=== PATIENT | female | born 1990 | race African-American/Black ===

== ENCOUNTER 2020-07-22 16:05 | Inpatient (IN) ==
[2020-07-22] MEDS ORDERED: NS 1,000 ML IV 1,000 ML ONE ×2 (19:58→21:07)
[2020-07-22] MEDS ORDERED: FLAGYL IV PREMIX 500 MG BAG 500 MG/100 ML BAG IV ONE (19:59)
[2020-07-22] MEDS ORDERED: SOLU-Medrol 40 MG VIAL ONE (19:59)
[2020-07-22 20:22] LABS: BASOPHILS # (AUTO) 0.1 X10^3/uL (0.0-0.1); MEAN CORPUSCULAR HEMOGLOBIN 12.3 pg (27.0-34.0)
[2020-07-22 20:28] LABS: ALANINE AMINOTRANSFERASE 13 Units/L (12-78); ALBUMIN 2.9 g/dL (3.4-5.0); ALKALINE PHOSPHATASE 88 Units/L (46-116); ASPARTATE AMINO TRANSFERASE 18 Units/L (15-37); BLOOD UREA NITROGEN 9 mg/dL (7-18); CALCIUM 8.6 mg/dL (8.5-10.1); CARBON DIOXIDE 28.9 mmol/L (21-32); CHLORIDE 105 mmol/L (98-107); COR CA(FOR HYPOALB) 9.5 mg/dL (8.5-10.1); CREATININE 0.71 mg/dL (0.55-1.02); SODIUM 141 mmol/L (136-145); TOTAL PROTEIN 8.8 g/dL (6.4-8.2); eGFR NON BLACK RACES > 60 (>60)
--- NOTE | 2020-07-22 20:28 | RAD ---
CHEST, PA/LAT ADULTHISTORY: ABDOMINAL PAINStudy: PA and lateral views of the chest.Comparison:NoneFindings:Poor inspiratory effort results in crowding of lung markings. Possible cardiomegaly.No focal consolidations, pleural effusions or pneumothorax. Osseous structures demonstrate no acute abnormality.IMPRESSION:1. Examination limited by poor inspiratory effort and excessively large field of view. Within those limitations, no definite acute cardiopulmonary abnormality.Electronically signed by: AMRIK AMBROCIO (Jul 22, 2020 20:26:47)
[2020-07-22 20:47] LABS: BASOPHILS % (AUTO) 0.9 % (0.2-1.0); EOSINOPHILS # (AUTO) 0.4 x10^3/uL (0.0-0.2); EOSINOPHILS % (AUTO) 3.3 % (0.9-2.9); HEMATOCRIT 20.8 % (36.0-47.0); LYMPHOCYTES # (AUTO) 3.8 X10^3/uL (1.3-2.9); LYMPHOCYTES % (AUTO) 32.5 % (21.0-51.0); MEAN CORPUSCULAR HGB CONC 25.3 g/dL (33.0-35.0); MEAN CORPUSCULAR VOLUME 48.6 fL (80.0-100.0); MEAN PLATELET VOLUME 8.8 fL (7.4-11.0); MONOCYTES # (AUTO) 0.5 x10^3/uL (0.3-0.8); MONOCYTES % (AUTO) 4.6 % (0.0-13.0); NEUTROPHILS # (AUTO) 6.8 x10^3/uL (2.2-4.8); NEUTROPHILS % (AUTO) 58.7 % (42.0-75.0); PLATELET COUNT 524 X10^3/uL (150.0-450.0); RED BLOOD COUNT 4.27 X10^6/uL (3.5-5.4); RED CELL DISTRIBUTION WIDTH 23.3 % (11.6-16.5); WHITE BLOOD COUNT 11.6 X10^3/uL (3.6-10.0)
[2020-07-22] MEDS ORDERED: CIPRO IV 400 MG PREMIX* 400 MG/200 ML IV.SOLN. IV SCH (21:00)
[2020-07-22 21:13] LABS: HEMOGLOBIN 5.3 g/dL (12.0-16.0)
[2020-07-22 21:14] LABS: ANISOCYTOSIS 2+; ERYTHROCYTE SEDIMENTATION RATE 72 MM/HOUR (0-20); GIANT PLATELET FEW; HYPOCHROMASIA 3+; MICROCYTOSIS 3+; PLATELET MORPHOLOGY COMMENT ABNORMAL (NORMAL)
[2020-07-22] MEDS: FLAGYL IV PREMIX 500 MG BAG 500 MG/100 ML BAG IV SCH (21:20)
[2020-07-22] MEDS: NS 1,000 ML IV 1,000 ML IV SCH (21:20)
[2020-07-22] MEDS: SOLU-Medrol 40 MG VIAL IVP SCH (21:20)
[2020-07-22] MEDS ORDERED: MORPHINE SULFATE INJ 2 MG INJ IVP PRN (21:39)
[2020-07-22] MEDS ORDERED: TORADOL 30 MG VIAL IVP ONE (22:26)
[2020-07-22] MEDS ORDERED: NORCO 7.5/325 MG TAB PO PRN (22:26)
[2020-07-22] MEDS ORDERED: TORADOL 30 MG VIAL ONE (22:41)
[2020-07-22] MEDS ORDERED: NYSTATIN POWDER ONE (22:42)
[2020-07-22] MEDS ORDERED: CLEOCIN 600 MG IV PREMIX 600 MG/50 ML BAG IV ONE (22:42)
[2020-07-22] MEDS ORDERED: ZOSYN VIAL 4.5 GRAMS IV ONE (22:43)
[2020-07-22] MEDS ORDERED: NS 100 ML IV + SPIKE MINIBAG* 100 ML IV ONE (22:43)
[2020-07-22] MEDS ORDERED: CLEOCIN 300 MG IV PREMIX 300 MG/50 ML BAG IV ONE (22:43)
[2020-07-23] MEDS ORDERED: NS 250 ML IV 250 ML IV ONE ×3 (00:38→15:27)
[2020-07-23] MEDS: ZOSYN VIAL 4.5 GRAMS 4.5 G in NS 100 ML IV + SPIKE MINIBAG* 100 ML IV SCH ×4 (01:12→21:00)
[2020-07-23 01:41] LABS: BILIRUBIN,URINE NEGATIVE (NEGATIVE); BLOOD/HEMOGLOBIN,URINE 5+ (NEGATIVE); GLUCOSE, URINE NEGATIVE (NEGATIVE); KETONES,URINE NEGATIVE (NEGATIVE); LEUKOCYTE ESTERASE ,URINE 3+ (NEGATIVE); NITRITES,URINE NEGATIVE (NEGATIVE); PROTEIN,URINE 2+ (NEGATIVE); UROBILINOGEN,URINE NORMAL (NORMAL)
[2020-07-23 01:43] LABS: APPEARANCE,URINE HAZY (CLEAR); COLOR,URINE DARK YELLOW (YELLOW)
[2020-07-23] MEDS: DILAUDID INJ IVP PRN ×3 (01:45→21:00)
[2020-07-23 01:51] LABS: BACTERIA,URINE 1+ /HPF (NEGATIVE); SQUAMOUS EPITHELIAL CELL,UR FEW /HPF (NEGATIVE)
[2020-07-23] MEDS ORDERED: BENADRYL CAP/TAB 25 MG PO ONE (02:41)
[2020-07-23] MEDS ORDERED: BENADRYL INJ 50 MG VIAL ONE ×2 (03:08→20:57)
[2020-07-23] MEDS: FLAGYL IV PREMIX 500 MG BAG 500 MG/100 ML BAG IV SCH ×4 (03:27→21:00)
[2020-07-23] MEDS: SOLU-Medrol 40 MG VIAL IVP SCH ×2 (05:29→15:30)
--- NOTE | 2020-07-23 07:07 | CT ---
HISTORYCHRONSSTUDYABDOMEN/PELVIS WITH CONCOMPARISONNone.TECHNIQUEMultiple axial images of the abdomen and pelvis were obtained from the lung bases to the pubic symphysis after the administration of IV contrast. Dose reduction techniques including Automated Exposure Control (AEC) and adjustment of mA and kV were utilized.FINDINGSLung bases are clear. The heart is mildly enlarged. Liver, gallbladder, spleen, pancreas, adrenal glands have a benign appearance. There is contrast excretion into the collecting system bilaterally which limits evaluation for nephrolithiasis. No nephrolithiasis, suspicious mass or hydronephrosis identified in the kidneys. Urinary bladder appears normal. Uterus is present. Diverticulosis of the colon without evidence of diverticulitis. The appendix appears normal. No significant wall enhancement, thickening or surrounding fat stranding of the terminal ileum. Negative for bowel obstruction. Normal caliber not atherosclerotic abdominal aorta. No pathologic adenopathy. No free air, free fluid or collection. Fat stranding in the anterior pelvic wall. No acute osseous abnormality. T8 hemangioma measuring 1 cm on image 40 series 7.IMPRESSIONFat stranding in the anterior pelvis wall/mons pubis consistent with cellulitis.Cardiomegaly.Otherwise no acute findings.Limited evaluation for nephrolithiasis given contrast excretion.Electronically signed by: Jorden Heath (Jul 23, 2020 07:05:57)
[2020-07-23] MEDS ORDERED: INJECTAFER 750 MG in NS 250 ML IV 250 ML IV NR (08:00)
[2020-07-23] MEDS ORDERED: CLEOCIN VIAL 600 MG 900 MG in D5W 50 ML IV 50 ML IV SCH ×2 (08:00→09:00)
[2020-07-23] MEDS ORDERED: INFeD or DEXFERRUM 25 MG in NS 100 ML IV 100 ML IV NR (09:00)
[2020-07-23 09:48] LABS: HEMATOCRIT 29.8 % (36.0-47.0)
[2020-07-23 10:02] LABS: HEMOGLOBIN 8.6 g/dL (12.0-16.0)
[2020-07-23] MEDS ORDERED: INFeD or DEXFERRUM 975 MG in NS 500 ML IV 500 ML IV NR (10:30)
--- NOTE | 2020-07-23 10:45 | DR.H&P ---
H&P - History & Physical for Day of: H&P Date: 07/22/20 - Chief Complaint Chief Complaint: ACUTE CROHNS FLARE, ANEMIA, RECTAL PAIN - History of Present Illness History of Present Illness: PT IS 30BF, DIRECT ADMIT WITH CO CROHNS FLARE, BLOOD IN STOOL, RECTAL PAIN WITH HX OF RECTAL FISTULAS. PT WAS ANEMIC, REQUIRING TRANSFUSION. 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 PT DENIES ANY CCC, FEVER OR COVID 19 SYMPTOMS. 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 - Social History Does patient currently use any type of tobacco product: Yes Have you used tobacco products in the last 12 months: Yes Type of Tobacco Use: Cigarettes How many years tobacco product used: 2 Alcohol Use: None Drug Use: None - Medications Home Medications: No Known Drug Allergies Allergy (Verified 07/22/20 19:47) CONTINUE taking the following medications amitriptyline 100 mg PO QHS 07/23/20 [History] dicyclomine 20 mg PO QID PRN 07/23/20 [History] hydrocodone-acetaminophen 1 tab PO DAILY 07/23/20 [History] hydroxyzine pamoate 25 mg PO USEASDIRECTD PRN 07/23/20 [History] ibuprofen 400 mg PO Q6H PRN 07/23/20 [History] ketoconazole 1 applic TOPICAL DAILY 07/23/20 [History] ketoconazole 200 mg PO BID 07/23/20 [History] promethazine 25 mg PO Q6HR PRN 07/23/20 [History] silver sulfadiazine [Silvadene] 1 applic TOPICAL DAILY 07/23/20 [History] - Review of Systems Constitutional: Malaise Eyes: No Symptoms Reported ENT: No Symptoms Reported Respiratory: SOB with Excertion Cardiovascular: No Symptoms Reported Gastrointestinal: Nausea, Vomiting, Abdominal Pain, Diarrhea Genitourinary: No Symptoms Reported Musculoskeletal: No Symptoms Reported Skin: Wound Neurological: No Symptoms Reported - Physical Exam Vital Signs: Temperature 97.8 F Pulse Rate [Apical] 95 Respiratory Rate 18 Blood Pressure [Left Arm] 103/76 O2 Sat by Pulse Oximetry 99 Oriented: Normal Eyes: Normal Ear: Normal Nose: Normal Throat: Normal Respiratory: Clear Throughout Cardiovascular: Normal : Normal Auscultation: Bowel Sounds: Normal Palpation: Normal Tenderness: LUQ, LLQ, Mild Skin: Red (DIFFUSE REDNESS UNDER LEFT BREAST), Wound (PERIRECTAL OPEN FISSURES, DIFFUSE REDNESS) Musculoskeletal: Normal Psychiatric: Anxiety Affect: Anxious Speech Pattern: Clear, Appropriate - Assessment/Plan (1) Anemia Status: Acute Plan: ADMIT, TRANSFUSE 2U PRBC PER PROTOCOL. STOOL STUDIES, IV ATBX THERAPY, IV SOLUMEDROL. PAIN CONTROL, VERIFY AND RESUME HOME MEDICATION. IV HYDRATION, IRON REPLACEMENT (2) Crohn's disease Status: Acute (3) Rectal fistula Status: Acute (4) Anal fissure Status: Acute (5) Cellulitis Status: Acute - Allergies Allergies/Adverse Reactions: Allergies Allergy/AdvReac Type Severity Reaction Status Date / Time No Known Drug Allergies Allergy Verified 07/22/20 19:47
[2020-07-23] MEDS ORDERED: VISTARIL PO PRN (10:48)
[2020-07-23] MEDS ORDERED: PHENERGAN TAB 25 MG PO PRN (10:48)
[2020-07-23] MEDS: NYSTATIN POWDER TOP SCH ×2 (10:51→21:00)
[2020-07-23] MEDS: NS 1,000 ML IV 1,000 ML IV SCH (10:51)
[2020-07-23] MEDS ORDERED: AMITRIPTYLINE 100 MG PO SCH (11:00)
[2020-07-23 13:50] VITALS: BMI 32.3
[2020-07-23] MEDS ORDERED: CLEOCIN 600 MG IV PREMIX 600 MG/50 ML BAG IV SCH (14:00)
[2020-07-23] MEDS: BACTROBAN TOP SCH ×8 (14:58→22:00)
[2020-07-23] MEDS: XYLOCAINE TOP SCH ×8 (14:58→22:00)
[2020-07-23] MEDS: [UNRECOGNIZED DRUG - OTHER] TOP SCH ×8 (14:58→22:00)
[2020-07-23] MEDS: NYSTATIN TOP SCH ×8 (14:58→22:00)
[2020-07-23] MEDS: D5W IV SCH ×4 (15:30→22:00)
[2020-07-23] MEDS: CLEOCIN IV SCH ×4 (15:30→22:00)
[2020-07-23] MEDS ORDERED: SOLU-Medrol 125 MG VIAL IVP ONE (20:42)
[2020-07-23] MEDS ORDERED: BENADRYL INJ 50 MG VIAL IVP ONE (20:42)
[2020-07-23] MEDS ORDERED: SOLU-Medrol 40 MG VIAL ONE (20:58)
[2020-07-23] MEDS: ELAVIL PO SCH (21:00)
[2020-07-23] MEDS ORDERED: SOLU-Medrol 40 MG VIAL IVP SCH (21:00)
[2020-07-24] MEDS: NS 1,000 ML IV 1,000 ML IV SCH ×2 (01:12→13:51)
[2020-07-24] MEDS: FLAGYL IV PREMIX 500 MG BAG 500 MG/100 ML BAG IV SCH ×4 (04:26→21:00)
[2020-07-24 05:21] LABS: BASOPHILS % (AUTO) 0.1 % (0.2-1.0); EOSINOPHILS % (AUTO) 0.1 % (0.9-2.9); HEMATOCRIT 26.4 % (36.0-47.0); HEMOGLOBIN 7.4 g/dL (12.0-16.0); LYMPHOCYTES # (AUTO) 0.8 X10^3/uL (1.3-2.9); MEAN CORPUSCULAR HEMOGLOBIN 16.3 pg (27.0-34.0); MEAN CORPUSCULAR HGB CONC 28.2 g/dL (33.0-35.0); MEAN PLATELET VOLUME 9.2 fL (7.4-11.0); MONOCYTES # (AUTO) 0.6 x10^3/uL (0.3-0.8); MONOCYTES % (AUTO) 3.4 % (0.0-13.0); NEUTROPHILS # (AUTO) 14.7 x10^3/uL (2.2-4.8); NEUTROPHILS % (AUTO) 91.4 % (42.0-75.0); PLATELET COUNT 423 X10^3/uL (150.0-450.0); RED BLOOD COUNT 4.55 X10^6/uL (3.5-5.4); RED CELL DISTRIBUTION WIDTH 36.1 % (11.6-16.5); WHITE BLOOD COUNT 16.1 X10^3/uL (3.6-10.0)
[2020-07-24 05:36] LABS: ALBUMIN 2.8 g/dL (3.4-5.0); ALKALINE PHOSPHATASE 86 Units/L (46-116); BLOOD UREA NITROGEN 7 mg/dL (7-18); CALCIUM 8.6 mg/dL (8.5-10.1); CARBON DIOXIDE 25.2 mmol/L (21-32); CHLORIDE 105 mmol/L (98-107); COR CA(FOR HYPOALB) 9.6 mg/dL (8.5-10.1); COR NA(FOR HYPERGLY) 143 mmol/L (136-145); SODIUM 141 mmol/L (136-145); TOTAL PROTEIN 8.1 g/dL (6.4-8.2); eGFR NON BLACK RACES > 60 (>60)
[2020-07-24] MEDS: BACTROBAN TOP SCH ×12 (06:12→22:00)
[2020-07-24] MEDS: [UNRECOGNIZED DRUG - OTHER] TOP SCH ×12 (06:12→22:00)
[2020-07-24] MEDS: ZOSYN VIAL 4.5 GRAMS 4.5 G in NS 100 ML IV + SPIKE MINIBAG* 100 ML IV SCH ×2 (06:12→13:51)
[2020-07-24] MEDS: NYSTATIN TOP SCH ×12 (06:12→22:00)
[2020-07-24] MEDS: D5W IV SCH ×2 (06:12)
[2020-07-24] MEDS: CLEOCIN IV SCH ×2 (06:12)
[2020-07-24] MEDS: XYLOCAINE TOP SCH ×12 (06:12→22:00)
[2020-07-24 06:14] LABS: ASPARTATE AMINO TRANSFERASE 19 Units/L (15-37)
[2020-07-24 06:15] LABS: ALANINE AMINOTRANSFERASE 13 Units/L (12-78)
[2020-07-24 06:18] LABS: ANISOCYTOSIS 3+; HYPOCHROMASIA 3+; MICROCYTOSIS 3+; PLATELET MORPHOLOGY COMMENT NORMAL (NORMAL)
[2020-07-24] MEDS: DILAUDID INJ IVP PRN ×3 (07:53→20:44)
[2020-07-24] MEDS: NYSTATIN POWDER TOP SCH ×2 (08:32→20:59)
[2020-07-24] MEDS: NORCO 7.5/325 MG TAB PO SCH (08:33)
[2020-07-24] MEDS ORDERED: LOMOTIL PO PRN (10:37)
[2020-07-24] MEDS: VANCOMYCIN HCL 250 MG CAP PO SCH ×2 (16:30→20:58)
[2020-07-24 17:32] LABS: HEMATOCRIT 27.1 % (36.0-47.0); HEMOGLOBIN 7.7 g/dL (12.0-16.0)
[2020-07-24] MEDS ORDERED: DILAUDID INJ ONE (20:28)
[2020-07-24] MEDS: ELAVIL PO SCH (21:00)
[2020-07-25] MEDS: FLAGYL IV PREMIX 500 MG BAG 500 MG/100 ML BAG IV SCH ×4 (03:02→21:00)
[2020-07-25] MEDS: DILAUDID INJ IVP PRN ×4 (03:33→17:44)
[2020-07-25] MEDS: NS 1,000 ML IV 1,000 ML IV SCH ×2 (05:07→17:45)
[2020-07-25] MEDS: BACTROBAN TOP SCH ×12 (05:08→22:00)
[2020-07-25] MEDS: [UNRECOGNIZED DRUG - OTHER] TOP SCH ×12 (05:08→22:00)
[2020-07-25] MEDS: NYSTATIN TOP SCH ×12 (05:08→22:00)
[2020-07-25] MEDS: XYLOCAINE TOP SCH ×12 (05:08→22:00)
[2020-07-25 06:30] LABS: BASOPHILS # (AUTO) 0.3 X10^3/uL (0.0-0.1); BASOPHILS % (AUTO) 1.3 % (0.2-1.0); EOSINOPHILS % (AUTO) 0.2 % (0.9-2.9); HEMATOCRIT 26.8 % (36.0-47.0); HEMOGLOBIN 7.5 g/dL (12.0-16.0); LYMPHOCYTES # (AUTO) 6.6 X10^3/uL (1.3-2.9); MEAN CORPUSCULAR HEMOGLOBIN 16.4 pg (27.0-34.0); MEAN CORPUSCULAR HGB CONC 28.1 g/dL (33.0-35.0); MEAN CORPUSCULAR VOLUME 58.5 fL (80.0-100.0); MONOCYTES # (AUTO) 0.8 x10^3/uL (0.3-0.8); NEUTROPHILS # (AUTO) 12.2 x10^3/uL (2.2-4.8); NEUTROPHILS % (AUTO) 61.5 % (42.0-75.0); PLATELET COUNT 432 X10^3/uL (150.0-450.0); RED BLOOD COUNT 4.58 X10^6/uL (3.5-5.4); RED CELL DISTRIBUTION WIDTH 37.2 % (11.6-16.5); WHITE BLOOD COUNT 19.9 X10^3/uL (3.6-10.0)
[2020-07-25 06:35] LABS: ALBUMIN 2.8 g/dL (3.4-5.0); ALKALINE PHOSPHATASE 78 Units/L (46-116); BLOOD UREA NITROGEN 10 mg/dL (7-18); CALCIUM 8.2 mg/dL (8.5-10.1); CARBON DIOXIDE 26.6 mmol/L (21-32); CHLORIDE 108 mmol/L (98-107); COR CA(FOR HYPOALB) 9.2 mg/dL (8.5-10.1); CREATININE 0.66 mg/dL (0.55-1.02); SODIUM 141 mmol/L (136-145); TOTAL PROTEIN 7.7 g/dL (6.4-8.2); eGFR NON BLACK RACES > 60 (>60)
[2020-07-25 06:51] LABS: ANISOCYTOSIS 3+; HYPOCHROMASIA 3+; MICROCYTOSIS 3+; PLATELET MORPHOLOGY COMMENT NORMAL (NORMAL)
[2020-07-25 07:04] LABS: ALANINE AMINOTRANSFERASE 13 Units/L (12-78); ASPARTATE AMINO TRANSFERASE 35 Units/L (15-37)
[2020-07-25] MEDS: VANCOMYCIN HCL 250 MG CAP PO SCH ×3 (09:04→17:14)
[2020-07-25] MEDS: NORCO 7.5/325 MG TAB PO SCH (09:04)
[2020-07-25] MEDS: NYSTATIN POWDER TOP SCH ×2 (09:05→21:14)
[2020-07-25] MEDS ORDERED: NS 500 ML IV 500 ML IV ONE (11:30)
[2020-07-25 18:12] LABS: HEMATOCRIT 28.1 % (36.0-47.0); HEMOGLOBIN 8.2 g/dL (12.0-16.0)
[2020-07-25] MEDS: ELAVIL PO SCH (21:30)
[2020-07-26] MEDS: DILAUDID INJ IVP PRN ×3 (00:22→20:55)
[2020-07-26] MEDS: FLAGYL IV PREMIX 500 MG BAG 500 MG/100 ML BAG IV SCH ×4 (03:45→21:04)
[2020-07-26] MEDS ORDERED: DILAUDID INJ ONE (05:38)
[2020-07-26] MEDS: [UNRECOGNIZED DRUG - OTHER] TOP SCH ×12 (05:44→21:05)
[2020-07-26] MEDS: XYLOCAINE TOP SCH ×12 (05:44→21:05)
[2020-07-26] MEDS: BACTROBAN TOP SCH ×12 (05:44→21:05)
[2020-07-26] MEDS: NYSTATIN TOP SCH ×12 (05:44→21:05)
[2020-07-26 06:36] LABS: BASOPHILS # (AUTO) 0.1 X10^3/uL (0.0-0.1); BASOPHILS % (AUTO) 0.5 % (0.2-1.0); EOSINOPHILS # (AUTO) 0.1 x10^3/uL (0.0-0.2); EOSINOPHILS % (AUTO) 0.8 % (0.9-2.9); HEMATOCRIT 29.7 % (36.0-47.0); HEMOGLOBIN 8.7 g/dL (12.0-16.0); LYMPHOCYTES # (AUTO) 4.4 X10^3/uL (1.3-2.9); LYMPHOCYTES % (AUTO) 29.3 % (21.0-51.0); MEAN CORPUSCULAR HGB CONC 29.2 g/dL (33.0-35.0); MEAN CORPUSCULAR VOLUME 61.8 fL (80.0-100.0); MEAN PLATELET VOLUME 8.3 fL (7.4-11.0); MONOCYTES # (AUTO) 1.2 x10^3/uL (0.3-0.8); MONOCYTES % (AUTO) 7.9 % (0.0-13.0); NEUTROPHILS # (AUTO) 9.3 x10^3/uL (2.2-4.8); NEUTROPHILS % (AUTO) 61.5 % (42.0-75.0); PLATELET COUNT 379 X10^3/uL (150.0-450.0); RED BLOOD COUNT 4.81 X10^6/uL (3.5-5.4); RED CELL DISTRIBUTION WIDTH 40.7 % (11.6-16.5); WHITE BLOOD COUNT 15.2 X10^3/uL (3.6-10.0)
[2020-07-26 06:48] LABS: ALANINE AMINOTRANSFERASE 14 Units/L (12-78); ALBUMIN 2.5 g/dL (3.4-5.0); ALKALINE PHOSPHATASE 72 Units/L (46-116); BLOOD UREA NITROGEN 6 mg/dL (7-18); CALCIUM 8.4 mg/dL (8.5-10.1); CHLORIDE 103 mmol/L (98-107); COR CA(FOR HYPOALB) 9.6 mg/dL (8.5-10.1); CREATININE 0.56 mg/dL (0.55-1.02); SODIUM 140 mmol/L (136-145); TOTAL PROTEIN 7.1 g/dL (6.4-8.2); eGFR NON BLACK RACES > 60 (>60)
[2020-07-26] MEDS ORDERED: MAG-OX TAB PO SCH (07:00)
[2020-07-26 07:11] LABS: ASPARTATE AMINO TRANSFERASE 31 Units/L (15-37)
[2020-07-26] MEDS ORDERED: KLOR-CON PO PRN (07:20)
[2020-07-26] MEDS ORDERED: K-RIDER 10 MEQ/NS 100 ML 10 MEQ/100 ML BAG IV PRN (07:20)
[2020-07-26] MEDS ORDERED: POTASSIUM CHL 60 MEQ/NS 0.45% 500 ML IV PRN (07:20)
[2020-07-26] MEDS ORDERED: MICRO K EXTEN CAP 10 MEQ PO PRN (07:20)
[2020-07-26] MEDS ORDERED: POTASSIUM CHLORIDE LIQ 20 MEQ UDC PO PRN (07:20)
[2020-07-26] MEDS ORDERED: POTASSIUM CHL 40 MEQ/NS 0.45% 500 ML IV PRN (07:20)
[2020-07-26 07:33] LABS: PLATELET MORPHOLOGY COMMENT NORMAL (NORMAL)
[2020-07-26 07:34] LABS: ANISOCYTOSIS 3+; HYPOCHROMASIA 3+; MICROCYTOSIS 2+
[2020-07-26] MEDS: NORCO 7.5/325 MG TAB PO SCH (08:35)
[2020-07-26] MEDS: NS 1,000 ML IV 1,000 ML IV SCH (08:36)
[2020-07-26] MEDS: NYSTATIN POWDER TOP SCH ×2 (08:36→21:05)
[2020-07-26] MEDS: K-DUR TAB 20 MEQ PO PRN ×2 (08:37→14:07)
[2020-07-26] MEDS: VANCOMYCIN HCL 250 MG CAP PO SCH ×5 (09:35→21:05)
[2020-07-26] MEDS: MAGNESIUM SULFATE 1 GRAM/100 mL PREMIX 1 GM/100 ML BAG IV PRN ×4 (13:45→18:29)
[2020-07-26] MEDS: MAG-OX TAB PO SCH (18:19)
[2020-07-26] MEDS: ELAVIL PO SCH (21:04)
[2020-07-27] MEDS: FLAGYL IV PREMIX 500 MG BAG 500 MG/100 ML BAG IV SCH ×2 (05:15→09:30)
[2020-07-27] MEDS: XYLOCAINE TOP SCH ×4 (05:47)
[2020-07-27] MEDS: NYSTATIN TOP SCH ×4 (05:47)
[2020-07-27] MEDS: BACTROBAN TOP SCH ×4 (05:47)
[2020-07-27] MEDS: [UNRECOGNIZED DRUG - OTHER] TOP SCH ×4 (05:47)
[2020-07-27 06:15] LABS: BASOPHILS # (AUTO) 0.1 X10^3/uL (0.0-0.1); BASOPHILS % (AUTO) 0.8 % (0.2-1.0); EOSINOPHILS # (AUTO) 0.2 x10^3/uL (0.0-0.2); EOSINOPHILS % (AUTO) 1.9 % (0.9-2.9); HEMATOCRIT 31.9 % (36.0-47.0); HEMOGLOBIN 9.2 g/dL (12.0-16.0); LYMPHOCYTES # (AUTO) 4.1 X10^3/uL (1.3-2.9); LYMPHOCYTES % (AUTO) 36.9 % (21.0-51.0); MEAN CORPUSCULAR HEMOGLOBIN 18.4 pg (27.0-34.0); MEAN CORPUSCULAR HGB CONC 28.9 g/dL (33.0-35.0); MEAN CORPUSCULAR VOLUME 63.6 fL (80.0-100.0); MEAN PLATELET VOLUME 8.3 fL (7.4-11.0); MONOCYTES # (AUTO) 0.7 x10^3/uL (0.3-0.8); MONOCYTES % (AUTO) 5.9 % (0.0-13.0); NEUTROPHILS # (AUTO) 6.1 x10^3/uL (2.2-4.8); NEUTROPHILS % (AUTO) 54.5 % (42.0-75.0); PLATELET COUNT 344 X10^3/uL (150.0-450.0); RED BLOOD COUNT 5.02 X10^6/uL (3.5-5.4); RED CELL DISTRIBUTION WIDTH 41.3 % (11.6-16.5); WHITE BLOOD COUNT 11.2 X10^3/uL (3.6-10.0)
[2020-07-27 06:41] LABS: ALANINE AMINOTRANSFERASE 20 Units/L (12-78); ALBUMIN 2.7 g/dL (3.4-5.0); ALKALINE PHOSPHATASE 70 Units/L (46-116); ASPARTATE AMINO TRANSFERASE 22 Units/L (15-37); BLOOD UREA NITROGEN 4 mg/dL (7-18); CALCIUM 8.8 mg/dL (8.5-10.1); CARBON DIOXIDE 27.4 mmol/L (21-32); CHLORIDE 104 mmol/L (98-107); COR CA(FOR HYPOALB) 9.8 mg/dL (8.5-10.1); CREATININE 0.61 mg/dL (0.55-1.02); MAGNESIUM 2.2 mg/dL (1.7-2.9); SODIUM 138 mmol/L (136-145); eGFR NON BLACK RACES > 60 (>60)
[2020-07-27 07:23] LABS: ANISOCYTOSIS 3+; HYPOCHROMASIA 3+; PLATELET MORPHOLOGY COMMENT NORMAL (NORMAL)
[2020-07-27 07:24] LABS: MICROCYTOSIS 2+
[2020-07-27 08:09] VITALS: BP 118/75
[2020-07-27] MEDS: NORCO 7.5/325 MG TAB PO SCH (08:38)
[2020-07-27] MEDS: MAG-OX TAB PO SCH (08:38)
[2020-07-27] MEDS: VANCOMYCIN HCL 250 MG CAP PO SCH (08:39)
[2020-07-27] MEDS: NS 1,000 ML IV 1,000 ML IV SCH (09:22)
[2020-07-27] MEDS: NYSTATIN POWDER TOP SCH (09:30)
== END 2020-07-27 10:30 | disposition home or self-care (01) ==
LOC: MED/SURG → OBSVTOIN 18:48
PROVIDERS: ADMIT Internal Medicine; ATTEND Internal Medicine